=== PATIENT | female | born 1995 | race African-American/Black ===

== ENCOUNTER 2018-06-24 00:39 | Emergency (ER) | payer MEDICAID ==
[~2018-06-24] VITALS: Ht 160 cm; Wt 90.3 kg
[2018-06-24] MEDS ORDERED: NKM (00:49)
[2018-06-24 01:00] VITALS: BP 131/86
[2018-06-24] MEDS ORDERED: DiphenhydrAMINE 50mg/ml Inj IVP ONE (01:00)
[2018-06-24] MEDS ORDERED: Metoclopramide 10mg/2ml Inj IVP ONE (01:00)
[2018-06-24 01:37] LABS: APPEARANCE,URINE CLEAR; BILIRUBIN, URINE NEGATIVE (NEGATIVE); COLOR,URINE PALE YELLOW; GLUCOSE, URINE (UA) NEGATIVE (NEGATIVE); KETONES,URINE NEGATIVE (NEGATIVE); LEUKOCYTE ESTERASE ,URINE NEGATIVE (NEGATIVE); NITRITE,URINE NEGATIVE (NEGATIVE); PH,URINE 8 (4.5-8.0); PROTEIN,URINE NEGATIVE (NEGATIVE); UROBILINOGEN,URINE NORMAL MG/DL (0.0-1.0)
[2018-06-24 01:47] LABS: ANION GAP 12 mmol/L (5-15); BLOOD UREA NITROGEN 5 mg/dL (7-18); CALCIUM 9.7 MG/DL (8.5-10.1); CARBON DIOXIDE 25 MMOL/L (21-32); CHLORIDE 100 MMOL/L (98-107); CREATININE 0.7 MG/DL (0.55-1.30); POTASSIUM 3.2 MMOL/L (3.5-5.1); SODIUM 136 MMOL/L (136-145)
[2018-06-24 01:48] LABS: BASOPHILS % (AUTO) 0.8 % (0.0-2.0); EOSINOPHILS % (AUTO) 0.3 % (0.0-3.0); HEMATOCRIT 39.7 % (37.0-47.0); HEMOGLOBIN 13.7 G/DL (12.0-16.0); LYMPHOCYTES % (AUTO) 21.1 % (20.0-45.0); MEAN CORPUSCULAR VOLUME 85 FL (80-99); MONOCYTES % (AUTO) 7.4 % (1.0-10.0); NEUTROPHILS % (AUTO) 70.3 % (45.0-75.0); PLATELET COUNT 255 K/UL (150-450); RED BLOOD COUNT 4.69 M/UL (4.20-5.40); RED CELL DISTRIBUTION WIDTH 11.4 % (11.6-14.8); WHITE BLOOD COUNT 9.5 K/UL (4.8-10.8)
[2018-06-24 01:51] LABS: ALANINE AMINOTRANSFERASE 47 U/L (12-78); ALBUMIN/GLOBULIN RATIO 0.9 (1.0-2.7); ALKALINE PHOSPHATASE 84 U/L (46-116); ASPARTATE AMINO TRANSFERASE 18 U/L (15-37); BILIRUBIN,TOTAL 0.3 MG/DL (0.2-1.0)
[2018-06-24 02:00] VITALS: BP 130/79
--- NOTE | 2018-06-24 03:21 | Emergency Room Report ---
History of Present Illness General Chief Complaint: Vomiting Source: Patient Present Illness HPI Patient presents with 2 weeks of vomiting. She is 8 weeks . She has no medications to help. No blood. Also complaining of abdominal pain. Bilateral flank and lower abdomen, constant, not cramping. Pain rated 8/10. No dysuria or vaginal bleeding. No fevers. She has trouble keeping down water. No medications taken for the pain. No dyspnea, chest pain, diarrhea. Normal BMs. No fever, chills, rashes, headache, edema, calf pain. . Possible prior ectopic (unsure). LNMP 04/30. Not seen Ob and not taking vitamins. Allergies: Coded Allergies: No Known Allergies (Unverified , 06/24/18) Patient History Past Medical History: see triage record Social History: Denies: smoking Social History Narrative Last Menstrual Period: April Nursing Documentation-[facility] Past Medical History: No Stated History Review of Systems All Other Systems: negative except mentioned in HPI Physical Exam Vital Signs Date Time Temp Pulse Resp B/P (MAP) Pulse Ox O2 Delivery O2 Flow Rate FiO2 06/24/18 00:43 98.1 86 18 131/86 97 Room Air 98.1 Sp02 EP Interpretation: reviewed, normal General Appearance: well appearing, no apparent distress, GCS 15 Head: normocephalic Eyes: bilateral eye normal inspection, bilateral eye PERRL ENT: moist mucus membranes Neck: supple Respiratory: lungs clear, normal breath sounds Cardiovascular #1: regular rate, rhythm Cardiovascular #2: 2+ radial (R) Gastrointestinal: normal inspection, normal bowel sounds, non tender, soft, no mass, non-distended, overweight Genitourinary: no CVA tenderness, deferred - for ultrasound Musculoskeletal: back normal, gait/station normal, normal range of motion Neurologic: alert, oriented x3, grossly normal Psychiatric: mood/affect normal Skin: normal inspection, warm/dry Medical Decision Making Diagnostic Impression: Primary Impression: Hyperemesis gravidarum Additional Impressions: 7 weeks gestation of Hypokalemia Abdominal pain Qualified Codes: R10.84 - Generalized abdominal pain ER Course Patient presents with vomiting and abdominal pain reporting 8 weeks . DDx: ectopic, UTI, pyelonephritis, hyperemesis gravidarum, threatened miscarriage, pancreatitis amongst others. Evaluation with labs and ultrasound. Treatment with IV hydration and tylenol. Labs significant for beta = [id number]. Potassium slightly low. WBC normal. UA clear without proteinuria, ketones or pyuria. Ultrasound with 7 week gestation with good cardiac activity. Pain improved and abdomen is soft. Discussed findings and low potassium with need for Ob follow up. Patient stable for outpatient observation and treatment. Laboratory Tests Test 06/24/18 00:50 06/24/18 01:20 Urine Color Pale yellow Urine Appearance Clear Urine pH 8 (4.5-8.0) Urine Specific Dalton 1.010 (1.005-1.035) Urine Protein Negative (NEGATIVE) Urine Glucose (UA) Negative (NEGATIVE) Urine Ketones Negative (NEGATIVE) Urine Blood Negative (NEGATIVE) Urine Nitrite Negative (NEGATIVE) Urine Bilirubin Negative (NEGATIVE) Urine Urobilinogen Normal MG/DL (0.0-1.0) Urine Leukocyte Esterase Negative (NEGATIVE) White Blood Count 9.5 K/UL (4.8-10.8) Red Blood Count 4.69 M/UL (4.20-5.40) Hemoglobin 13.7 G/DL (12.0-16.0) Hematocrit 39.7 % (37.0-47.0) Mean Corpuscular Volume 85 FL (80-99) Mean Corpuscular Hemoglobin 29.2 PG (27.0-31.0) Mean Corpuscular Hemoglobin Concent 34.5 G/DL (32.0-36.0) Red Cell Distribution Width 11.4 % (11.6-14.8) L Platelet Count 255 K/UL (150-450) Mean Platelet Volume 7.6 FL (6.5-10.1) Neutrophils (%) (Auto) 70.3 % (45.0-75.0) Lymphocytes (%) (Auto) 21.1 % (20.0-45.0) Monocytes (%) (Auto) 7.4 % (1.0-10.0) Eosinophils (%) (Auto) 0.3 % (0.0-3.0) Basophils (%) (Auto) 0.8 % (0.0-2.0) Sodium Level 136 MMOL/L (136-145) Potassium Level 3.2 MMOL/L (3.5-5.1) L Chloride Level 100 MMOL/L (98-107) Carbon Dioxide Level 25 MMOL/L (21-32) Anion Gap 12 mmol/L (5-15) Blood Urea Nitrogen 5 mg/dL (7-18) L Creatinine 0.7 MG/DL (0.55-1.30) Estimate Glomerular Filtration Rate > 60 mL/min (>60) Glucose Level 90 MG/DL (74-106) Calcium Level 9.7 MG/DL (8.5-10.1) Total Bilirubin 0.3 MG/DL (0.2-1.0) Aspartate Amino Transferase (AST) 18 U/L (15-37) Alanine Aminotransferase (ALT) 47 U/L (12-78) Alkaline Phosphatase 84 U/L (46-116) Total Protein 8.7 G/DL (6.4-8.2) H Albumin 4.0 G/DL (3.4-5.0) Globulin 4.7 g/dL Albumin/Globulin Ratio 0.9 (1.0-2.7) L Lipase 96 U/L (73-393) Human Chorionic Gonadotropin, Quant 918728 mIU/mL (1-6) H CT/MRI/US Diagnostic Results CT/MRI/US Diagnostic Results : Imaging Test Ordered: pelvic u/s Impression Single living intrauterine with gestational age by ultrasound of approximately 7 weeks 3 days. heart rate of approximately 189 bpm. Right ovarian cyst. No evidence to suggest ovarian torsion. Last Vital Signs Date Time Temp Pulse Resp B/P (MAP) Pulse Ox O2 Delivery O2 Flow Rate FiO2 06/24/18 03:42 98.1 70 18 130/79 99 Room Air 98.1 Status: improved Disposition: HOME, SELF-CARE Condition: Improved Scripts Acetaminophen (Tylenol) 325 Mg Tablet 650 MG ORAL Q6H PRN for Prn Pain/Headache/Temp > 101, #30 TAB 0 Refills Prov: Feng Lau M.D. 06/24/18 Vit W-Ca,Fe,FA(<1 mg) ( Vitamins) 1 Each Tablet 1 EACH PO DAILY, #30 TAB Prov: Feng Lau M.D. 06/24/18 Promethazine Hcl* (PHENERGAN*) 25 Mg Tablet 25 MG ORAL Q8HR PRN for Nausea & Vomiting, #10 TAB 0 Refills Prov: Feng Lau M.D. 06/24/18 Promethazine HCl (Promethegan) 25 Mg Supp.rect 25 MG RECTAL Q8HR PRN for Nausea & Vomiting, #3 SUPP 2 Refills Prov: Feng Lau M.D. 06/24/18 Referrals: NOT CHOSEN JAMES/,REFERRING (PCP) Feng Lau M.D. Jun 24, 2018 03:21
[2018-06-24] MEDS ORDERED: TYLENOL325 MG ORAL (03:32)
[2018-06-24] MEDS ORDERED: PRENATAL VITAM1 EAC8 PO (03:32)
[2018-06-24] MEDS ORDERED: PHENERGAN SUPP25 MG RECTAL (03:32)
[2018-06-24] MEDS ORDERED: PHENERGAN25 M1 ORAL (03:32)
[2018-06-24 03:42] VITALS: BP_SYST 128; BP_SYST 130; BP_DIAS 69; BP_DIAS 79
--- NOTE | 2018-06-24 10:17 | Diagnostic Imaging Report ---
Indication: Pain. Positive test. Technique: Transabdominal and endovaginal pelvic ultrasound was performed. Findings: The uterus measures 9 point 4 x 4 by 5.9 cm. An intrauterine gestational sac is identified. A yolk sac is identified. A healed poles identified with a crown-rump length of approximately 12.7 mm. cardiac motion is noted on cine clips. heart rate of approximately 189 bpm. Cervix appears closed. The right ovary measures 3.1 x 3.3 x 4.5 cm/24 mL. A cyst in the right ovary measures approximately 1.4 x 1.6 cm. Color and Doppler flow to the right ovary is documented. The left ovary measures 2.5 x 1.8 x 2.2 centers/5 mL. Color and Doppler flow to the left ovary is documented. IMPRESSION: Single living intrauterine with gestational age by ultrasound of approximately 7 weeks 3 days. heart rate of approximately 189 bpm. Right ovarian cyst. No evidence to suggest ovarian torsion. Findings correspond with the preliminary report issued to the emergency department by the scanning cath lab technologist.
== END 2018-06-24 03:50 | disposition home or self-care (01) ==
LOC: EMR 00:59
DX: O21.1 Hyperemesis gravidarum with metabolic disturbance (principal); E87.6 Hypokalemia; O26.891 Other specified pregnancy related conditions, first trimester; R10.9 Unspecified abdominal pain; Z3A.08 8 weeks gestation of pregnancy
CPT/HCPCS: 36415; 76801; 76830; 80053; 81003; 83690; 84702; 85025; 96361; 96374; 96375; 99284; J1200; J2765